=== PATIENT | female | born 1940 | race Caucasian/White ===

== ENCOUNTER 2021-01-19 20:10 | Emergency (ER) | payer OTHER ==
[~2021-01-19] VITALS: Ht 157.5 cm; Wt 73.5 kg
[~2021-01-19 20:10] MED LIST: COZAAR100 MG PO; DIVIGEL30 GM TD; GABAPENTIN 100100 MG PO; GABAPENTIN100 MG PO; LASIX 20 MG TAB20 MG PO; MOBIC15 MG PO; NEXIUM 40 MG CA40 M1 PO; NORTRIPTYLINE H50 MG PO; PREDNISONE 20 M20 MG PO; TRAMADOL 50 MG50 MG PO; TRIAMTERENE-HC1 EAC1 PO; VITAMIN D 5050000 I1 PO
[2021-01-19] MEDS ORDERED: PRALUENT P150 MG/1 M SUBQ (20:51)
[2021-01-19] MEDS ORDERED: ASA81BEC PO (20:51)
[2021-01-19] MEDS ORDERED: TRAMADOL 50 MG50 MG PO (20:52)
[2021-01-19] MEDS ORDERED: DULOXETINE HCL30 MG PO (20:52)
[2021-01-19 22:50] VITALS: BP 178/82
== END 2021-01-19 22:51 | disposition home or self-care (01) ==
LOC: ER 20:10
PROVIDERS: Nurse Practitioner
DX: I10 Essential (primary) hypertension (principal); Z20.822 Contact with and (suspected) exposure to COVID-19; R53.83 Other fatigue; M79.7 Fibromyalgia; Z90.711 Acquired absence of uterus with remaining cervical stump; Z95.1 Presence of aortocoronary bypass graft; Z79.82 Long term (current) use of aspirin; Z79.1 Long term (current) use of non-steroidal anti-inflammatories (NSAID); Z79.899 Other long term (current) drug therapy; Z88.0 Allergy status to penicillin; Z88.2 Allergy status to sulfonamides